=== PATIENT | female | born 1955 | race African-American/Black ===

== ENCOUNTER 2020-10-23 08:18 | Day surgery (SDC) | payer OTHER, SELFPAY ==
[~2020-10-23] VITALS: Ht 162.6 cm; Wt 76.2 kg
[2020-10-23] MEDS ORDERED: fentaNYL citrate 0.05 MG/ML VIAL ONE (09:39)
[2020-10-23] MEDS ORDERED: diphenhydrAMINE 50 MG/ML VIAL ONE (09:39)
[2020-10-23] MEDS ORDERED: LIDOCAINE 2% 100 MG/5 ML UJET TP ONE (09:40)
[2020-10-23] MEDS ORDERED: MIDAZOLAM 5 MG/5 ML VIAL ONE (09:40)
[2020-10-23] MEDS ORDERED: MIDAZOLAM 2 MG/2 ML VIAL IVP ONE (12:15)
[2020-10-23] MEDS ORDERED: fentaNYL citrate 0.05 MG/ML VIAL IVP ONE (12:15)
== END 2020-10-23 11:48 | disposition home or self-care (01) ==
LOC: MDS 08:18 → MFCC 08:23 → MDS 11:48
PROVIDERS: ATTEND Internal Medicine Gastroenterology
DX: K59.00 Constipation, unspecified (principal); K63.5 Polyp of colon; K92.1 Melena; K57.30 Diverticulosis of large intestine without perforation or abscess without bleeding; K21.00 Gastro-esophageal reflux disease with esophagitis, without bleeding; K44.9 Diaphragmatic hernia without obstruction or gangrene; I10 Essential (primary) hypertension; Z88.0 Allergy status to penicillin; Z98.890 Other specified postprocedural states; Z79.82 Long term (current) use of aspirin; Z79.899 Other long term (current) drug therapy; Z20.828 Contact with and (suspected) exposure to other viral communicable diseases
CPT/HCPCS: 43235; 45385; 88305; J2250; J3010; U0003; J1200